=== PATIENT | male | born 1980 | race Two or more races ===

== ENCOUNTER 2019-02-06 14:49 | Inpatient (IN) | payer SELFPAY ==
[~2019-02-06] VITALS: Ht 177.8 cm; Wt 100.1 kg
[2019-02-06 15:29] LABS: Basophils # (auto) 0.1 uL; Basophils % (auto) 0.5 % (0.0-2.0); Eosinophils # (auto) 0.4 uL; Eosinophils % (auto) 3.5 % (0.0-7.0); Hematocrit 46.5 % (41.0-53.0); Hemoglobin 15.4 g/dL (13.5-17.5); Lymphocytes # (auto) 4.1 uL; Lymphocytes % (auto) 36.8 % (10.0-50.0); Mean Corpuscular Hemoglobin 31.4 pg (28.0-32.0); Mean Corpuscular Hgb Conc. 33.1 g/dL (32.0-36.0); Mean Corpuscular Volume 94.9 fL (80.0-100.0); Monocytes # (auto) 0.7 uL; Monocytes % (auto) 6.3 % (0.0-12.0); Neutrophils # (auto) 5.9 uL; Neutrophils % (auto) 52.9 % (37.0-80.0); Platelet Count (auto) 231 10^3/uL (140-450); Red Cell Distribution Width 13.8 % (11.8-14.3); White Blood Cell 11.1 10^3/uL (4.4-10.8)
[2019-02-06 15:51] LABS: Albumin 3.5 g/dL (3.4-5.0); BUN/Creatinine Ratio 16.7; Calcium 8.1 mg/dL (8.5-10.1); Potassium 3.6 mmol/L (3.5-5.1)
[2019-02-06 15:54] LABS: Bilirubin, Total 0.4 mg/dL (0.2-1.0); Total Protein 7.2 g/dL (6.4-8.2)
[2019-02-06] MEDS ORDERED: SODIUM CHLORIDE 0.9% 1,000 ML IVB ONE (16:25)
[2019-02-06 18:39] LABS: Magnesium 2.2 mg/dL (1.6-2.6)
[2019-02-06 20:54] LABS: Urine Bacteria NONE SEEN /hpf (None Seen); Urine Blood Negative /uL (Negative); Urine Mucus FEW (None Seen); Urine Specific Gravity 1.015 (1.001-1.035); Urine WBC 3 /hpf (0 - 3)
[2019-02-06 21:03] LABS: Alcohol, Urine < 3.0 mg/dL (0-5); Amphetamine Screen, Urine NEGATIVE (NEGATIVE); Barbiturate Scree,Urine NEGATIVE (NEGATIVE); Benzodiazephine Screen, Urine NEGATIVE (NEGATIVE); Cannabinoid Screen, Urine POSITIVE (NEGATIVE); Cocaine Screen, Urine NEGATIVE (NEGATIVE); Opiate Scree,Urine NEGATIVE (NEGATIVE); Phencyclidine Screen, Urine NEGATIVE (NEGATIVE)
[2019-02-06] MEDS ORDERED: ONDANSETRON HCL 4 MG/2 ML VIAL IV PRN (21:30)
[2019-02-06] MEDS ORDERED: ACETAMINOPHEN 325 MG TAB PO PRN (21:30)
[2019-02-06] MEDS ORDERED: TEMAZEPAM 15 MG CAP PO PRN (21:30)
[2019-02-06] MEDS ORDERED: NITROGLYCERIN 0.4 MG SL TAB SL PRN (21:45)
[2019-02-06] MEDS ORDERED: MORPHINE SULF INJ 2 MG/ML SYRINGE 1ML IV PRN (21:45)
[2019-02-06] MEDS: FAMOTIDINE 20 MG TAB PO SCH (22:17)
[2019-02-06] MEDS ORDERED: METOPROLOL TARTRATE 25 MG TAB PO ONE (23:15)
--- NOTE | 2019-02-06 23:45 | NUR ---
Telemetry admit from [facility] admitted to Telemetry unit after SBAR received. Patient oriented to Fer salamanca RN, unit, room 288, bed A, and unit policies regarding patient care and visiting hours. Patient now on continuous telemetry monitoring, tele box #[id number] and telemetry reading on arrival to unit is Afib 93. Patient VS taken, weighed by bedscale and encouraged to call if they need something. All questions and concerns addressed, patient verbalized understanding.
[2019-02-07 00:21] VITALS: BP 101/57
[2019-02-07 00:46] VITALS: BP 101/57
[2019-02-07 05:10] VITALS: BP 92/53
[2019-02-07 06:39] LABS: BUN/Creatinine Ratio 13.1; Potassium 4.4 mmol/L (3.5-5.1)
[2019-02-07 09:00] VITALS: BP 113/80
[2019-02-07] MEDS ORDERED: ASPirin 81 mg TAB PO SCH (10:00)
[2019-02-07] MEDS ORDERED: METOPROLOL TARTRATE 25 MG TAB PO SCH (10:00)
[2019-02-07] MEDS: FAMOTIDINE 20 MG TAB PO SCH (11:00)
--- NOTE | 2019-02-07 12:17 | NUR ---
Patient Left AMA The patient decided to leave against medical advice this morning. Issue stemmed from a visit from the admitting office discussing his billed. He was upset to have a 5 thousand dollar bill after a day and a half stay. Expressed this just after paying a portion of the bill. Called his and left within the hour. The patient did sign the AMA form prior to leaving. Charge nurse Keri, was notified. Explained risk involved with leaving AMA, the patient stated he understood. Stated his issues started due to a mistake and that he has been dealing with A-Fib for years. Also stated he will see a academic vice president again.
[2019-02-07 12:32] VITALS: BP 135/71
== END 2019-02-07 11:15 | disposition left against medical advice (07) | DRG 308 ==
LOC: EDBD 14:49 → ER 14:54 → TELE 14:55 → TELE-WESTW 23:25
PROVIDERS: ADMIT Nurse Practitioner; ATTEND Hospitalist
DX: I48.0 Paroxysmal atrial fibrillation (principal); G92 Toxic encephalopathy; F12.10 Cannabis abuse, uncomplicated; R00.0 Tachycardia, unspecified; R55 Syncope and collapse; Z53.29 Procedure and treatment not carried out because of patient's decision for other reasons
CPT/HCPCS: 36415; 70450; 71045; 80048; 80053; 80307; 81001; 83735; 84484; 85025; 93005; 93306; 96360; G0378